=== PATIENT | male | born 2000 | race Caucasian/White ===

== ENCOUNTER → 2018-07-29 | Emergency (ER) | payer OTHER ==
[~2018-07-29] VITALS: Ht 185.4 cm; Wt 83.9 kg
== END | disposition left against medical advice (07) ==
LOC: ER 15:01
DX: Z53.20 Procedure and treatment not carried out because of patient's decision for unspecified reasons (principal)

== ENCOUNTER 2018-08-07 08:36 | Emergency (ER) | payer OTHER ==
[~2018-08-07] VITALS: Ht 182.9 cm; Wt 77.1 kg
== END 2018-08-07 14:09 | disposition home or self-care (01) ==
LOC: ER 08:36
DX: S93.401A Sprain of unspecified ligament of right ankle, initial encounter (principal); V19.9XXA Pedal cyclist (driver) (passenger) injured in unspecified traffic accident, initial encounter; Y93.02 Activity, running; Y92.488 Other paved roadways as the place of occurrence of the external cause; Y99.8 Other external cause status